=== PATIENT | male | born 1955 | race Caucasian/White ===

== ENCOUNTER 2017-12-02 09:08 | Emergency (ER) | payer MEDICAID ==
[2017-12-02 09:19] VITALS: PULSE 69; TEMP 97.8; BMI 28.8
--- NOTE | 2017-12-02 09:41 | ED PDOC ---
Arrival/HPI - General Chief Complaint: Back Pain Time Seen by Provider: 12/02/17 09:21 Historian: Patient - History of Present Illness Narrative History of Present Illness (Text): 12/02/17 09:33 This 62 yo male presents to this ED c/o right lower back pain since yesterday. Patient stated pain worsen with movement, and pain relief with rest. Denies fever, sob, cp, wheezing, or abdominal pain, nausea, vomiting, dizziness, or abnormal gait. Patient requested LS spine x-rays. Time/Duration: Other (noncontributory) Quality: Aching Context: Home Past Medical History - Provider Review Nursing Documentation Reviewed: Yes - Past Medical History Past Medical History: No Previous - Cardiac Hx Hypertension: Yes - Pulmonary Hx Respiratory Disorders: No - Neurological Hx Neurological Disorder: No - HEENT Hx HEENT Disorder: No - Renal Hx Renal Disorder: No - Endocrine/Metabolic Hx Diabetes Mellitus Type 2: Yes - Hematological/Oncological Hx Blood Disorders: No - Integumentary Hx Dermatological Disorder: No - Musculoskeletal/Rheumatological Hx Back Pain: Yes Hx Falls: Yes - Gastrointestinal Hx Gastrointestinal Disorders: No - Genitourinary/Gynecological Hx Genitourinary Disorders: No - Psychiatric Hx Psychophysiologic Disorder: No Hx Substance Use: No - Past Surgical History Past Surgical History: No Previous - Suicidal Assessment Feels Threatened In Home Enviroment: No Family/Social History - Physician Review Nursing Documentation Reviewed: Yes Family/Social History: Other (noncontributory) Smoking Status: Never Smoked Hx Alcohol Use: No Hx Substance Use: No Hx Substance Use Treatment: No Allergies/Home Meds Allergies/Adverse Reactions: Allergies No Known Allergies Allergy (Verified 12/02/17 09:18) Home Medications: Home Meds Medication Instructions Recorded Confirmed Aspirin [Ecotrin] 81 mg PO DAILY 12/02/17 12/02/17 Ergocalciferol (Vitamin D2) 50,000 unit PO QWK 12/02/17 12/02/17 [Vitamin D2] Ibuprofen [Motrin Tab] 800 mg PO BID 12/02/17 12/02/17 Losartan [Cozaar] 100 mg PO DAILY 12/02/17 12/02/17 MetFORMIN [glucOPHAGE] 500 mg PO ACHS 12/02/17 12/02/17 Pravastatin Sodium [Pravachol] 20 mg PO DAILY 12/02/17 12/02/17 amLODIPine [Norvasc] 5 mg PO DAILY 12/02/17 12/02/17 Review of Systems - Review of Systems Constitutional: Normal. absent: Fatigue, Weight Change, Fevers, Night Sweats Eyes: Normal ENT: Normal Respiratory: Normal Cardiovascular: Normal Gastrointestinal: Normal Genitourinary Male: Normal Musculoskeletal: Back Pain Skin: Normal Neurological: Normal Endocrine: Normal Hemo/Lymphatic: Normal Psychiatric: Normal Physical Exam Vital Signs Temp Pulse Resp BP Pulse Ox 12/02/17 11:00 69 18 149/70 98 12/02/17 09:19 97.8 F 69 19 161/78 H 99 12/02/17 09:18 97.8 F 69 19 161/78 H 99 Temperature: Afebrile Blood Pressure: Normal Pulse: Regular Respiratory Rate: Normal Appearance: Positive for: Well-Appearing, Non-Toxic, Comfortable Pain Distress: None Mental Status: Positive for: Alert and Oriented X 3 - Systems Exam Head: Present: Atraumatic, Normocephalic Pupils: Present: PERRL Extroacular Muscles: Present: EOMI Conjunctiva: Present: Normal Mouth: Present: Moist Mucous Membranes Neck: Present: Normal Range of Motion Respiratory/Chest: Present: Clear to Auscultation, Good Air Exchange. No: Respiratory Distress, Accessory Muscle Use, Wheezes, Retracting, Rhonchi Cardiovascular: Present: Regular Rate and Rhythm, Normal S1, S2. No: Murmurs Abdomen: Present: Normal Bowel Sounds. No: Tenderness, Distention, Peritoneal Signs Back: Present: Normal Inspection, Paraspinal Tenderness (mild right paravertebral point tenderness). No: CVA Tenderness, Midline Tenderness Upper Extremity: Present: Normal Inspection, Normal ROM. No: Cyanosis, Edema Lower Extremity: Present: Normal Inspection, Normal ROM. No: Edema Neurological: Present: GCS=15, CN II-XII Intact, Speech Normal, Motor Func Grossly Intact, Normal Sensory Function, Normal Cerebellar Funct, Gait Normal, Memory Normal Skin: Present: Warm, Dry, Normal Color. No: Rashes Psychiatric: Present: Alert, Oriented x 3, Normal Insight, Normal Concentration Medical Decision Making ED Course and Treatment: 12/02/17 10:22 Re-evaluation. Patient feels better. Discussed results and plan with patient who expresses understanding. All questions answered and there is agreement with the plan to discharge home with instructions. Patient stable for discharge. Return if symptoms persist or worsen. Urinalysis was negative without hematuria. Patient was treated with Toradol. and recommended to f/u pmd in 1-2 days. Re-evaluation Time: 10:23 Reassessment Condition: Re-examined, Improved - Lab Interpretations Lab Results: Lab Results 12/02/17 10:01: Urine Color Yellow, Urine Appearance Clear, Urine pH 7.0, Ur Specific [place] 1.010, Urine Protein Negative, Urine Glucose (UA) Negative, Urine Ketones Negative, Urine Blood Negative, Urine Nitrate Negative, Urine Bilirubin Negative, Urine Urobilinogen 0.2, Ur Leukocyte Esterase Negative I have reviewed the lab results: Yes Interpretation: No clinic. lab abnormalty - RAD Interpretation Radiology Orders: 12/02/17 09:44 LS SPINE WITH OBL > 18 YRS OLD [RAD] Stat - Medication Orders Current Medication Orders: Discontinued Medications Ketorolac Tromethamine (Toradol) 30 mg IM STAT STA Stop: 12/02/17 09:44 Last Admin: 12/02/17 09:55 Dose: 30 mg MAR Pain Assessment Document 12/02/17 09:55 [email or web address] (Rec: 12/02/17 09:56 CAST [id number]) Pain Reassessment Is this a pain reassessment? No Pain Scale Used Pain Scale Used Numeric Location Upper or Lower Lower Pain Location Body Site Back Description Description Constant Intensity of Pain at present 8 Pain Behavior Facial Grimacing Aggravating Factors Changing Position Alleviating Factors/Management Position Change Techniques Alleviating Factors Medication IM Administration Charges Document 12/02/17 09:55 [email or web address] (Rec: 12/02/17 09:56 [email or web address] [id number]) Injection Site MAR Injection Site Right Deltoid Charges for Administration # of IM Administrations 1 Disposition/Present on Arrival - Present on Arrival Any Indicators Present on Arrival: No History of DVT/PE: No History of Uncontrolled Diabetes: No Urinary Catheter: No History of Decub. Ulcer: No History Surgical Site Infection Following: None - Disposition Have Diagnosis and Disposition been Completed?: Yes Diagnosis: Lower back pain Disposition: HOME/ ROUTINE Disposition Time: 10:25 Patient Plan: Discharge Condition: GOOD Discharge Instructions (ExitCare): Low Back Pain in Adults Additional Instructions: Call private doctor for follow up visit in 1-2 days. Take medications as instructed. Return to emergency if symptoms worsen. Do not drive or operate machinery if you take Tylenol with Codeine for at least 12 hours Prescriptions: Acetaminophen with Codeine [Tylenol with Codeine #3 Tablet] 1 each PO Q6H PRN # 15 tablet PRN Reason: Pain, Severe (8-10) Naproxen 500 mg PO BID PRN #10 tablet PRN Reason: Pain, Severe (8-10) Referrals: Nelia Conley MD [Primary Care Provider] - Follow up with primary Forms: [employer] ([place])
[2017-12-02 10:09] LABS: URINE BILIRUBIN NEGATIVE (NEGATIVE); URINE BLOOD NEGATIVE (NEGATIVE); URINE GLUCOSE (UA) NEGATIVE (NEGATIVE); URINE LEUKOCYTE ESTERASE NEGATIVE Leu/uL (NEGATIVE); URINE PROTEIN NEGATIVE mg/dL (<30 mg/dL); URINE UROBILINOGEN 0.2 E.U./dL (<1 E.U./dL)
[2017-12-02 10:14] LABS: URINE APPEARANCE CLEAR (CLEAR); URINE COLOR YELLOW (YELLOW)
[2017-12-02 11:00] VITALS: BP 149/70; RESP 18; O2SAT 98
--- NOTE | 2017-12-02 11:40 | RAD ---
PROCEDURE: Radiographs of the Lumbar Spine. HISTORY: Back pain COMPARISON: No prior. FINDINGS: BONES: There is mild degenerative retrolisthesis of L4 on L5. There is normal lumbar lordosis. There is no acute fracture, spondylolysis or spondylolisthesis DISC SPACES: There are advanced multilevel degenerative changes with flowing anterior osteophytes, reduced disc heights and multilevel facet arthropathy, worse at L4-5. OTHER FINDINGS: None. IMPRESSION: Multilevel degenerative disc disease, worse at L4-5 with mild degenerative retrolisthesis of L4 on L5. No acute fracture or spondylolysis.
== END 2017-12-02 11:00 | disposition home or self-care (01) ==
LOC: ED 09:08
DX: M54.5 Low back pain (principal)
CPT/HCPCS: 72110; 81003; 96372; 99282; J1885